=== PATIENT | female | born 2000 | race Caucasian/White ===

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

== ENCOUNTER 2021-05-27 15:09 | Emergency (ER) | payer OTHER ==
[~2021-05-27] VITALS: Ht 162.6 cm; Wt 90.3 kg
[2021-05-27 15:47] VITALS: BP 115/84
[2021-05-27 17:43] LABS: BASOPHILS % (AUTO) 0.3 % (0.0-2.0); EOSINOPHILS # (AUTO) 0.1 K/uL (0-0.4); EOSINOPHILS % (AUTO) 0.8 % (0.0-4.0); HEMATOCRIT 37.5 % (36-48); HEMOGLOBIN 12.6 g/dL (12.0-16.0); LYMPHOCYTES # (AUTO) 2.2 K/uL (2.5-16.5); LYMPHOCYTES % (AUTO) 31.4 % (20.5-51.1); MEAN CORPUSCULAR HEMOGLOBIN 29 pg (27-31); MEAN CORPUSCULAR HGB CONC 34 g/dL (33-37); MONOCYTES # (AUTO) 0.6 K/uL (0.8-1.0); MONOCYTES % (AUTO) 9.1 % (1.7-9.3); NEUTROPHILS # (AUTO) 4.1 K/uL (1.8-7.7); NEUTROPHILS % (AUTO) 58.4 % (42.2-75.2); PLATELET COUNT (AUTO) 291 K/uL (140-450); RED BLOOD CELL COUNT(AUTO) 4.36 MIL/uL (4.20-5.40); RED CELL DISTRIBUTION WIDTH 13.9 % (11.6-13.7); WHITE BLOOD COUNT (AUTO) 7.1 K/uL (4.5-11.0)
[2021-05-27 18:01] LABS: ALBUMIN 4.2 g/dL (3.4-5.0); ANION GAP 15.9 (8-16); CARBON DIOXIDE 25.1 mmol/L (21-32); CREATININE 0.6 mg/dL (0.6-1.3); TOTAL BILIRUBIN 0.5 mg/dL (0.0-1.0)
--- NOTE | 2021-05-27 18:57 | NUR ---
PT TAKEN TO ER BED 4
--- NOTE | 2021-05-27 19:04 | NUR ---
PT C/O PELVIC PAIN WITH VAGINAL BLEEDING SINCE THIS AM. PT REPORTS MINIMAL SPOTTING AT THIS TIME. PENDING ER MD GRAY. PRICE.
--- NOTE | 2021-05-27 19:13 | NUR ---
REPORT RECEIVED FROM LADY SHEA FOR CONTINUITY OF PT CARE AT THIS TIME.
--- NOTE | 2021-05-27 19:42 | NUR ---
PT SITTING IN BED LOCKED IN LOWEST POSITION W X1 SIDERAIL UP. PT REPORTS PAIN IMPROVEMENT , JUST HAS SOME PELVIC DISCOMFORT. PT DOES NOT NEED ANYTHING AT THIS TIME. VSS. BREATHING EVEN AND UNLABORED. NAD NOTED, WILL CONTINUE TO MONITOR. VSS.
[2021-05-27] MEDS ORDERED: NAPR-1704 PO (19:44)
[2021-05-27 20:08] VITALS: BP 116/55
== END 2021-05-27 20:08 | disposition home or self-care (01) ==
LOC: MED 15:09
DX: R10.2 Pelvic and perineal pain (principal)
CPT/HCPCS: 36415; 76856; 80053; 81002; 81025; 84702; 85025; 99284; Q0092

== ENCOUNTER 2021-08-15 21:15 | Emergency (ER) | payer OTHER ==
[~2021-08-15] VITALS: Ht 162.6 cm; Wt 72.6 kg
[~2021-08-15 21:15] MED LIST: NAPR-1704 PO
[2021-08-15 21:32] VITALS: BP 101/74
--- NOTE | 2021-08-15 21:42 | NUR ---
TO BR FOR UA
[2021-08-15] MEDS ORDERED: KETOROLAC 60 MG/2 ML VIAL IM ONE (21:55)
[2021-08-15 21:56] VITALS: BP 128/64
--- NOTE | 2021-08-15 21:57 | NUR ---
20 Y/O F BIB SELF FOR C/O BACK PAIN 9/10 SINCE YESTERDAY . PT TOOK IBUPROFEN FOR PAIN. PT STATES PAIN UPON AMBULATION AND URINATION. PT STATES NO BLOOD IN URINE. PT LAST MENSTRUAL 07/24/21 PT STATES BACK FEELS STIFF. PT DENIES F/N/V/DIARRHEA/COUGH. PMH: OVARIAN CYSTS MEDS: NONE . NKA SOCIAL HX: PT STOPPED SMOKING 1 YEAR AGO BUT LIVES IN HOME WITH SMOKERS. PT IS SEXUALLY ACTIVE. NO PROTECTION
[2021-08-15] MEDS ORDERED: KETOROLAC 30 MG/ML VIAL IVP ONE (22:15)
[2021-08-15] MEDS ORDERED: NACL 0.9% 1,000 ML IV ONE (22:15)
[2021-08-15] MEDS ORDERED: cefTRIAXone 1,000 MG VIAL ONE (22:22)
--- NOTE | 2021-08-15 22:58 | NUR ---
Patient appears to be resting comfortably in bed. Vital Signs within normal limits. Respirations even and unlabored.
[2021-08-15 23:31] LABS: APPEARANCE,URINE CLOUDY (CLEAR); BILIRUBIN,URINE NEGATIVE (NEGATIVE); BLOOD, URINE NEGATIVE (NEGATIVE); COLOR,URINE YELLOW (YELLOW); LEUKOCYTE ESTERASE ,URINE 1+ (NEGATIVE); NITRITE, URINE POSITIVE (NEGATIVE); UGLUCOSE NEGATIVE (NEGATIVE)
[2021-08-15 23:39] LABS: RBC,URINE 0-5 /HPF (0-5)
--- NOTE | 2021-08-15 23:47 | NUR ---
PT SITTING AT EDGE OF BED. ALL NEEDS MET AT THIS TIME
--- NOTE | 2021-08-16 00:18 | NUR ---
IV removed, catheter intact and site benign. Applied folded 4x4 gauze and tape to stop bleeding.
[2021-08-16] MEDS ORDERED: NAPR-54 PO (00:26)
[2021-08-16] MEDS ORDERED: NITR100C7 PO (00:26)
--- NOTE | 2021-08-16 00:30 | NUR ---
PT CLEARED FOR DISCHARGE BY DR. MALCOLM. ALL DISCHARGE INSTRUCTIONS AND MEDICATION ADMINISTRATION PROVIDED BY DR. MALCOLM. RX OF NAPROSYN AND MACROBID PROVIDED.
== END 2021-08-16 00:30 | disposition home or self-care (01) ==
LOC: MED 21:15
DX: N12 Tubulo-interstitial nephritis, not specified as acute or chronic (principal); M54.50 Low back pain, unspecified; Z79.899 Other long term (current) drug therapy
CPT/HCPCS: 36415; 81001; 81025; 87040; 87086; 96365; 96375; 99284; J0696; J1885; J7030

== ENCOUNTER 2021-09-15 20:04 | Emergency (ER) | payer OTHER ==
[~2021-09-15] VITALS: Ht 162.6 cm; Wt 88.5 kg
[~2021-09-15 20:04] MED LIST changes: +NAPR-54 PO; +NITR100C7 PO
[2021-09-15 20:14] VITALS: BP 139/65
--- NOTE | 2021-09-15 20:20 | NUR ---
Ambulatory to bed 12 and change to a gown.
--- NOTE | 2021-09-15 20:26 | NUR ---
Dr. Matias at bedside to exam patient.
[2021-09-15 21:27] LABS: BILIRUBIN,URINE NEGATIVE (NEGATIVE); BLOOD, URINE 3+ (NEGATIVE); COLOR,URINE YELLOW (YELLOW); LEUKOCYTE ESTERASE ,URINE TRACE (NEGATIVE); NITRITE, URINE NEGATIVE (NEGATIVE); PH,URINE 5.5 (5.0-9.0); UGLUCOSE NEGATIVE (NEGATIVE)
[2021-09-15 21:34] LABS: APPEARANCE,URINE HAZY (CLEAR)
[2021-09-15 21:41] LABS: RBC,URINE TOO NUMEROUS TO COUN /HPF (0-5); WBC,URINE 0-5 /HPF (0-5)
[2021-09-15 21:53] LABS: BASOPHILS % (AUTO) 0.3 % (0.0-2.0); EOSINOPHILS # (AUTO) 0.1 K/uL (0-0.4); EOSINOPHILS % (AUTO) 1.1 % (0.0-4.0); HEMATOCRIT 34.2 % (36-48); HEMOGLOBIN 11.7 g/dL (12.0-16.0); LYMPHOCYTES # (AUTO) 2.4 K/uL (2.5-16.5); LYMPHOCYTES % (AUTO) 32.5 % (20.5-51.1); MEAN CORPUSCULAR HEMOGLOBIN 29 pg (27-31); MEAN CORPUSCULAR HGB CONC 34 g/dL (33-37); MEAN CORPUSCULAR VOLUME 85.7 fL (80-94); MONOCYTES # (AUTO) 0.5 K/uL (0.8-1.0); MONOCYTES % (AUTO) 6.2 % (1.7-9.3); NEUTROPHILS # (AUTO) 4.5 K/uL (1.8-7.7); NEUTROPHILS % (AUTO) 59.9 % (42.2-75.2); PLATELET COUNT (AUTO) 299 K/uL (140-450); RED BLOOD CELL COUNT(AUTO) 3.99 MIL/uL (4.20-5.40); RED CELL DISTRIBUTION WIDTH 13.8 % (11.6-13.7); WHITE BLOOD COUNT (AUTO) 7.5 K/uL (4.5-11.0)
--- NOTE | 2021-09-15 21:57 | NUR ---
Ultrasound at bedside.
--- NOTE | 2021-09-15 21:57 | NUR ---
Kaitlyn morales in [facility] - 09/15/21 at 2158 by DIALLO ultrasound at bedside.
[2021-09-15 22:10] LABS: ALBUMIN 3.7 g/dL (3.4-5.0); ANION GAP 13.9 (8-16); CARBON DIOXIDE 24.8 mmol/L (21-32); CREATININE 0.5 mg/dL (0.6-1.3); POTASSIUM 3.7 mmol/L (3.5-5.1); TOTAL BILIRUBIN 0.2 mg/dL (0.0-1.0)
[2021-09-15] MEDS ORDERED: ACET-10509 PO (22:17)
[2021-09-15] MEDS ORDERED: IBUP-1842 PO (22:29)
[2021-09-15] MEDS ORDERED: NITR100C7 PO (22:29)
[2021-09-15] MEDS ORDERED: KETOROLAC 30 MG/ML VIAL IM ONE (22:30)
--- NOTE | 2021-09-16 01:28 | NUR ---
NOTIFIED [place] PD THAT PT LEFT AMA WITH IV INSERTED. NOTED PT TO BE GONE AT AROUND 0045 WAS NOT IN ROOM AND DID NOT RETURN. HAD NOTIFIED PT EARLIER THAT ABDOMINAL US RESULTS WERE PENDING BEFORE DISCHARGE, PT HAD AGREED TO WAIT FOR US RESULTS.
--- NOTE | 2021-09-16 01:50 | NUR ---
PATIENT ELOPED FROM FACILITY. DISCHARGE INSTRUCTIONS NOT GIVEN TO PATIENT. NOTIFIED.
[2021-09-16 01:53] VITALS: BP 139/65
--- NOTE | 2021-09-16 02:42 | NUR ---
[place] [employer] called about patient update on the IV. Will call patient regarding coming back to [place] [facility] to take the IV out. Per [place] [employer] will call back for updates.
--- NOTE | 2021-09-16 02:45 | NUR ---
Called Tisha regarding IV. Patient answered and hung up. Will attempt to call back. Addendum: 09/16/21 at 0247 by DIALLO attempted to call again- went straight to voicemail.
--- NOTE | 2021-09-16 07:12 | NUR ---
[place] [facility] arrived for update on patient and in regards to IV. Addendum: 09/16/21 at 0712 by [email or web address] Per [place] [employer] called Tisha via cellphone, pt answered and informed PD that pt took out the IV and "does not need any medical attention".
== END 2021-09-16 01:50 | disposition home or self-care (01) ==
LOC: MED 20:04
DX: N30.90 Cystitis, unspecified without hematuria (principal); N94.6 Dysmenorrhea, unspecified; Z79.899 Other long term (current) drug therapy
CPT/HCPCS: 36415; 76856; 80053; 81001; 81025; 84703; 85025; 93976; 96372; 99284; J1885; Q0092